=== PATIENT | female | born 1975 | race African-American/Black ===

== ENCOUNTER 2018-06-05 13:45 | Inpatient (IN) | payer MEDICAID ==
[~2018-06-05] VITALS: Ht 180.3 cm; Wt 93.0 kg
[2018-06-05] MEDS ORDERED: SODIUM CHLORIDE 0.9% 1,000 ML IV ONE (17:25)
[2018-06-05 18:25] LABS: BASOPHILS % 0.3 % (0.0-2.0); EOSINOPHILS % 0.6 % (0.0-5.0); HEMATOCRIT. 42.8 % (36.0-48.0); HEMOGLOBIN. 14.2 g/dL (12.0-16.0); LYMPHOCYTES % 8.1 % (20.0-50.0); MEAN CORPUSCULAR HEMOGLOBIN 30.3 pg (28.0-32.0); MEAN CORPUSCULAR VOLUME 91.5 fL (81.0-99.0); MEAN PLATELET VOLUME 9.9 fl (7.4-10.4); MONOCYTES % 5.5 % (2.0-8.0); NEUTROPHILS % 85.5 % (40.0-76.0); PLATELET 331 x1000/uL (130-400); RED BLOOD CELL COUNT 4.67 mill/uL (4.2-5.4); RED CELL DISTRIBUTION WIDTH 13.9 % (11.6-14.6)
[2018-06-05 18:26] LABS: CHLORIDE 103 mEq/L (98-107)
[2018-06-05 18:30] LABS: INR 1.1; PROTHROMBIN TIME 11.4 sec (9.1-11.1)
[2018-06-05 18:44] LABS: CLARITY URINE CLOUDY (CLEAR); COLOR URINE YELLOW (YELLOW); KETONES URINE TRACE (NEGATIVE); LEUKOCYTE ESTERASE URINE NEGATIVE (NEGATIVE); NITRITE URINE NEGATIVE (NEGATIVE); OCCULT BLOOD URINE NEGATIVE (NEGATIVE); PROTEIN URINE NEGATIVE (NEGATIVE); SPECIFIC GRAVITY URINE 1.041 (1.005-1.030); UROBILINOGEN URINE 0.2 E.U./dL (0.2-1.0)
[2018-06-05 19:21] LABS: HCG SCREEN NEGATIVE
[2018-06-05] MEDS ORDERED: ACETAMINOPHEN 325MG TABLET PO PRN (22:00)
[2018-06-05] MEDS ORDERED: CLONIDINE 0.1MG TABLET PO PRN (22:00)
[2018-06-05] MEDS ORDERED: POTASSIUM CHLORIDE 20MEQ TABLET SR PO PRN (22:00)
[2018-06-05 23:30] VITALS: BP 113/62
[2018-06-06] VITALS (10 sets, daily range): BP systolic 107–134; BP diastolic 56–82
[2018-06-06] MEDS: LORAZEPAM 0.5MG TABLET PO PRN (00:05)
[2018-06-06] MEDS: DEXT 5%/0.45% NACL 1000ML 1,000 ML IV SCH ×2 (00:16→11:12)
[2018-06-06] MEDS ORDERED: LEVO100T MT (04:38)
[2018-06-06] MEDS: LEVOTHYROXINE SODIUM 100MCG TABLET PO SCH (07:20)
[2018-06-06 07:35] LABS: CHLORIDE 107 mEq/L (98-107)
[2018-06-06 07:46] LABS: BASOPHILS % 0.2 % (0.0-2.0); EOSINOPHILS % 2.3 % (0.0-5.0); HEMATOCRIT. 36.1 % (36.0-48.0); HEMOGLOBIN. 12.1 g/dL (12.0-16.0); LYMPHOCYTES % 25.5 % (20.0-50.0); MEAN CORPUSCULAR HEMOGLOBIN 30.3 pg (28.0-32.0); MEAN CORPUSCULAR VOLUME 90.8 fL (81.0-99.0); MEAN PLATELET VOLUME 9.2 fl (7.4-10.4); MONOCYTES % 6.4 % (2.0-8.0); NEUTROPHILS % 65.6 % (40.0-76.0); PLATELET 277 x1000/uL (130-400); RED BLOOD CELL COUNT 3.98 mill/uL (4.2-5.4); RED CELL DISTRIBUTION WIDTH 13.5 % (11.6-14.6)
[2018-06-06 11:12] LABS: INR 1.2; PARTIAL THROMBOPLASTIN TIME 32.7 sec (23.4-31.0); PROTHROMBIN TIME 11.9 sec (9.1-11.1)
[2018-06-06] MEDS ORDERED: KETOROLAC 15MG/ML VIAL IV PRN (12:15)
[2018-06-06] MEDS ORDERED: FENTANYL CITRATE/PF 50MCG/ML 2ML VIAL ONE (16:30)
[2018-06-06] MEDS ORDERED: MIDAZOLAM HCL 2 MG/2 ML VIAL ONE ×2 (16:30→16:58)
[2018-06-06] MEDS ORDERED: PROPOFOL 200MG/20ML VIAL IV ONE (16:31)
[2018-06-06] MEDS ORDERED: DIPHENHYDRAMINE 50MG/ML VIAL ONE (16:38)
[2018-06-07] VITALS: BP 100/57
[2018-06-07] MEDS: DEXT 5%/0.45% NACL 1000ML 1,000 ML IV SCH ×2 (00:26→13:52)
[2018-06-07 04:00] VITALS: BP 107/65
[2018-06-07] MEDS: LEVOTHYROXINE SODIUM 100MCG TABLET PO SCH (06:47)
[2018-06-07] MEDS: KETOROLAC 10MG TABLET PO PRN ×2 (06:54→14:46)
[2018-06-07 08:00] VITALS: BP 105/63
[2018-06-07] MEDS ORDERED: PANTOPRAZOLE SODIUM 40 MG/VIAL IV SCH (09:00)
[2018-06-07 12:00] VITALS: BP 100/60
[2018-06-07 16:00] VITALS: BP 110/76
[2018-06-07] MEDS ORDERED: POLYETHYLENE GLYCOL 3350 (17GM) 1 DOSE PACK PO PRN (16:30)
[2018-06-07] MEDS ORDERED: DOCUSATE SODIUM 100MG CAPSULE PO PRN (16:30)
[2018-06-07] MEDS: NIFEDIPINE 10MG CAPSULE PO SCH (17:34)
[2018-06-07] MEDS: LORAZEPAM 0.5MG TABLET PO PRN ×2 (17:42→22:52)
[2018-06-07 20:00] VITALS: BP 105/60
[2018-06-08] VITALS: BP 105/60
[2018-06-08 04:00] VITALS: BP 105/60
[2018-06-08] MEDS: LEVOTHYROXINE SODIUM 100MCG TABLET PO SCH (06:23)
[2018-06-08 08:06] VITALS: BP 112/64
[2018-06-08] MEDS: NIFEDIPINE 10MG CAPSULE PO SCH ×2 (08:08→12:15)
[2018-06-08 11:51] VITALS: BP 122/84
[2018-06-08 13:08] VITALS: BP 122/84
== END 2018-06-08 14:27 | disposition home or self-care (01) | DRG 243 ==
LOC: ER 17:03 → 6WST 18:48 → ENRESERV 21:43
PROVIDERS: ADMIT Specialist; ATTEND Emergency Medicine
PROC: 0D718ZZ Dilation of Upper Esophagus, Via Natural or Artificial Opening Endoscopic (ICD-10-PCS; principal; 2018-06-06 16:00)
DX: K22.2 Esophageal obstruction (principal); D72.829 Elevated white blood cell count, unspecified; E86.0 Dehydration; E89.0 Postprocedural hypothyroidism; F41.9 Anxiety disorder, unspecified; K22.4 Dyskinesia of esophagus; Z90.49 Acquired absence of other specified parts of digestive tract; Z92.21 Personal history of antineoplastic chemotherapy; Z85.850 Personal history of malignant neoplasm of thyroid; Z92.3 Personal history of irradiation
CPT/HCPCS: 36415; 71045; 80048; 81025; 83605; 84703; 93005; 96360; 99285; J1200; J1885; J2250; J2704; J3010; J7030

== ENCOUNTER 2018-07-21 11:33 | Inpatient (IN) | payer MEDICAID ==
[~2018-07-21] VITALS: Ht 180.3 cm; Wt 88.5 kg
[~2018-07-21 11:33] MED LIST: LEVO100T MT
[2018-07-21] MEDS ORDERED: SODIUM CHLORIDE 0.9% 1,000 ML IV ONE (12:16)
[2018-07-21] MEDS ORDERED: NIFEDIPINE XL 30MG TAB PO ONE (12:30)
[2018-07-21 12:47] LABS: BASOPHILS % 0.4 % (0.0-2.0); EOSINOPHILS % 1.8 % (0.0-5.0); HEMATOCRIT. 41.6 % (36.0-48.0); LYMPHOCYTES % 22.3 % (20.0-50.0); MEAN CORPUSCULAR HEMOGLOBIN 30.3 pg (28.0-32.0); MEAN CORPUSCULAR VOLUME 90.3 fL (81.0-99.0); MEAN PLATELET VOLUME 9.3 fl (7.4-10.4); MONOCYTES % 7.2 % (2.0-8.0); NEUTROPHILS % 68.3 % (40.0-76.0); PLATELET 274 x1000/uL (130-400); RED BLOOD CELL COUNT 4.61 mill/uL (4.2-5.4); RED CELL DISTRIBUTION WIDTH 13.7 % (11.6-14.6)
[2018-07-21 12:53] LABS: INR 1.1; PROTHROMBIN TIME 11.1 sec (9.1-11.1)
[2018-07-21 13:00] LABS: CHLORIDE 103 mEq/L (98-107)
[2018-07-21 16:00] VITALS: BP 126/72
[2018-07-21 16:34] VITALS: BP 126/72
[2018-07-21] MEDS ORDERED: nifedipine (16:45)
[2018-07-21] MEDS ORDERED: NITROGLYCERIN 0.4MG TABLET SL SL PRN (17:15)
[2018-07-21] MEDS ORDERED: TRAMADOL 50MG TABLET PO PRN (17:15)
[2018-07-21] MEDS ORDERED: ACETAMINOPHEN 325MG TABLET PO PRN (17:15)
[2018-07-21] MEDS ORDERED: IPRATROPIUM/ALBUTEROL 0.5-3(2.5)MG/3ML NEB INH PRN (17:15)
[2018-07-21] MEDS ORDERED: NA PHOS,M-B/NA PHOS,DI-BA ENEMA 118ML PR PRN (17:15)
[2018-07-21] MEDS ORDERED: MAGNESIUM/ALUMINUM HYDROXIDE/SIMETHICONE 30ML UDC PO PRN (17:15)
[2018-07-21] MEDS ORDERED: LORAZEPAM 2MG/ML CPJ IV PRN (17:15)
[2018-07-21] MEDS ORDERED: CLONIDINE 0.1MG TABLET PO PRN (17:15)
[2018-07-21] MEDS: SODIUM CHLORIDE 0.9% 1,000 ML IV SCH (17:44)
[2018-07-21] MEDS: ENOXAPARIN 40MG/0.4ML SYR SUBCUT SCH (17:44)
[2018-07-21] MEDS: KETOROLAC 30MG/ML VIAL IV PRN (17:49)
[2018-07-21 20:00] VITALS: BP 117/79
[2018-07-21] MEDS: FAMOTIDINE 20MG TABLET PO SCH (20:03)
[2018-07-21] MEDS: ZOLPIDEM TARTRATE 5MG TABLET PO PRN (22:00)
[2018-07-22] VITALS: BP 112/76
[2018-07-22 04:00] VITALS: BP 126/74
[2018-07-22] MEDS ORDERED: LEVOTHYROXINE SODIUM 100MCG TABLET PO SCH (07:20)
[2018-07-22 08:00] VITALS: BP 117/61
[2018-07-22] MEDS ORDERED: DIATR MEGLU/DIATRIZOATE SOLN 120ML ONE (08:09)
[2018-07-22] MEDS ORDERED: BARIUM SULFATE 176 GM SUSP.RECON ONE (08:15)
[2018-07-22] MEDS: FAMOTIDINE 20MG TABLET PO SCH ×2 (08:22→21:45)
[2018-07-22] MEDS ORDERED: EZ-HD SUSPENSION(BARIUM SULFATE 340GM) PO ONE (09:06)
[2018-07-22] MEDS: KETOROLAC 30MG/ML VIAL IV PRN (10:59)
[2018-07-22 16:00] VITALS: BP 121/81
[2018-07-22] MEDS: ENOXAPARIN 40MG/0.4ML SYR SUBCUT SCH (17:14)
[2018-07-22 20:00] VITALS: BP 108/72
[2018-07-22] MEDS: ZOLPIDEM TARTRATE 5MG TABLET PO PRN (23:09)
[2018-07-23] VITALS: BP 130/82
[2018-07-23 04:00] VITALS: BP 116/65
[2018-07-23] MEDS: LEVOTHYROXINE SODIUM 125MCG TABLET PO SCH (06:40)
[2018-07-23 08:00] VITALS: BP 117/82
[2018-07-23] MEDS: FAMOTIDINE 20MG TABLET PO SCH ×2 (08:36→20:05)
[2018-07-23] MEDS: DOCUSATE SODIUM 100MG CAPSULE PO PRN (08:42)
[2018-07-23] MEDS: SODIUM CHLORIDE 0.9% 1,000 ML IV SCH (10:42)
[2018-07-23] MEDS: KETOROLAC 30MG/ML VIAL IV PRN ×2 (10:48→20:05)
[2018-07-23 12:00] VITALS: BP 110/65
[2018-07-23] MEDS: ONDANSETRON HCL 4MG/2ML INJ IV PRN ×2 (14:09→19:00)
[2018-07-23 16:00] VITALS: BP 115/60
[2018-07-23] MEDS: ENOXAPARIN 40MG/0.4ML SYR SUBCUT SCH (18:24)
[2018-07-23 20:00] VITALS: BP 119/79
[2018-07-23] MEDS: PANTOPRAZOLE SODIUM 40 MG/VIAL IV SCH (20:05)
[2018-07-23] MEDS: ZOLPIDEM TARTRATE 5MG TABLET PO PRN (22:39)
[2018-07-24] VITALS: BP 118/71
[2018-07-24 04:00] VITALS: BP 116/74
[2018-07-24] MEDS: SODIUM CHLORIDE 0.9% 1,000 ML IV SCH ×3 (06:33→23:16)
[2018-07-24] MEDS: LEVOTHYROXINE SODIUM 125MCG TABLET PO SCH (06:35)
[2018-07-24 08:00] VITALS: BP 131/80
[2018-07-24] MEDS: PANTOPRAZOLE SODIUM 40 MG/VIAL IV SCH ×2 (08:24→23:03)
[2018-07-24] MEDS: FAMOTIDINE 20MG TABLET PO SCH (08:28)
[2018-07-24 09:32] LABS: BASOPHILS % 0.6 % (0.0-2.0); EOSINOPHILS % 2.1 % (0.0-5.0); HEMATOCRIT. 35.4 % (36.0-48.0); HEMOGLOBIN. 11.8 g/dL (12.0-16.0); LYMPHOCYTES % 25.2 % (20.0-50.0); MEAN CORPUSCULAR HEMOGLOBIN 30.4 pg (28.0-32.0); MEAN CORPUSCULAR VOLUME 90.9 fL (81.0-99.0); MEAN PLATELET VOLUME 9.2 fl (7.4-10.4); MONOCYTES % 6.7 % (2.0-8.0); NEUTROPHILS % 65.4 % (40.0-76.0); PLATELET 276 x1000/uL (130-400); RED CELL DISTRIBUTION WIDTH 13.8 % (11.6-14.6)
[2018-07-24 09:43] LABS: CHLORIDE 107 mEq/L (98-107)
[2018-07-24 09:52] LABS: PHOSPHORUS 2.5 mg/dL (2.5-4.9)
[2018-07-24 10:27] LABS: INR 1.2; PARTIAL THROMBOPLASTIN TIME 31.4 sec (23.4-31.0); PROTHROMBIN TIME 11.8 sec (9.1-11.1)
[2018-07-24] MEDS ORDERED: MIDAZOLAM HCL 5 MG/5 ML VIAL ONE (11:42)
[2018-07-24] MEDS ORDERED: FENTANYL CITRATE/PF 50MCG/ML 2ML VIAL ONE (11:42)
[2018-07-24] MEDS ORDERED: MIDAZOLAM HCL 5 MG/5 ML VIAL IV PRN (11:47)
[2018-07-24] MEDS ORDERED: FENTANYL CITRATE/PF 50MCG/ML 2ML VIAL IV PRN (11:48)
[2018-07-24] MEDS ORDERED: STERILE WATER FOR INJECTION 10ML VIAL ONE (15:46)
[2018-07-24 16:00] VITALS: BP 156/69
[2018-07-24] MEDS: ENOXAPARIN 40MG/0.4ML SYR SUBCUT SCH (17:18)
[2018-07-24 20:08] VITALS: BP 102/58
[2018-07-24] MEDS: ONDANSETRON HCL 4MG/2ML INJ IV PRN (23:04)
[2018-07-24] MEDS: ZOLPIDEM TARTRATE 5MG TABLET PO PRN (23:04)
[2018-07-25] VITALS: BP 124/61
[2018-07-25 04:00] VITALS: BP 120/72
[2018-07-25] MEDS: LEVOTHYROXINE SODIUM 125MCG TABLET PO SCH (07:29)
[2018-07-25 07:52] VITALS: BP 122/82
[2018-07-25] MEDS: DOCUSATE SODIUM 100MG CAPSULE PO PRN (08:18)
[2018-07-25] MEDS: PANTOPRAZOLE SODIUM 40 MG/VIAL IV SCH (08:18)
[2018-07-25] MEDS: SODIUM CHLORIDE 0.9% 1,000 ML IV SCH (10:57)
[2018-07-25 12:00] VITALS: BP 108/70
[2018-07-25 12:09] VITALS: BP 108/70
== END 2018-07-25 14:20 | disposition home or self-care (01) | DRG 243 ==
LOC: ER 13:12 → 6EST 13:58 → EDBEDREQ 14:00 → EDBEDREQSVC 14:00 → ENRESERV 14:23 → 6EST 07-22 11:59
PROVIDERS: ADMIT Internal Medicine; ATTEND Internal Medicine
PROC: 0DB68ZX Excision of Stomach, Via Natural or Artificial Opening Endoscopic, Diagnostic (ICD-10-PCS; principal; 2018-07-24)
DX: K22.2 Esophageal obstruction (principal); E89.0 Postprocedural hypothyroidism; K44.9 Diaphragmatic hernia without obstruction or gangrene; K29.60 Other gastritis without bleeding; I10 Essential (primary) hypertension; Z85.850 Personal history of malignant neoplasm of thyroid; Z90.49 Acquired absence of other specified parts of digestive tract; Z79.899 Other long term (current) drug therapy
CPT/HCPCS: 36415; 71045; 74220; 80048; 83735; 84100; 84443; 88305; 88312; 88313; 93005; 93970; 96361; 96372; 96374; 99285; A4216; C9113; J1650; J1885; J2250; J2405; J3010; J7030; J7042; Q9963

== ENCOUNTER 2018-11-29 18:20 | Inpatient (IN) | payer MEDICAID ==
[~2018-11-29] VITALS: Ht 182.9 cm; Wt 86.2 kg
[~2018-11-29 18:20] MED LIST changes: +nifedipine
[2018-11-30] MEDS ORDERED: SODIUM CHLORIDE 0.9% 1,000 ML IV ONE (00:50)
[2018-11-30] MEDS ORDERED: ONDANSETRON HCL 4MG/2ML INJ IV STA (00:50)
[2018-11-30] MEDS ORDERED: MORPHINE SULFATE 4 MG/ML CPJ (NOT FOR IM USE) IV STA (00:50)
[2018-11-30 01:00] LABS: BASOPHILS % 0.5 % (0.0-2.0); EOSINOPHILS % 3.7 % (0.0-5.0); HEMATOCRIT. 37.2 % (36.0-48.0); HEMOGLOBIN. 12.5 g/dL (12.0-16.0); MEAN CORPUSCULAR VOLUME 89.4 fL (81.0-99.0); MEAN PLATELET VOLUME 9.9 fl (7.4-10.4); MONOCYTES % 7.1 % (2.0-8.0); NEUTROPHILS % 57.7 % (40.0-76.0); PLATELET 243 x1000/uL (130-400); RED BLOOD CELL COUNT 4.17 mill/uL (4.2-5.4); RED CELL DISTRIBUTION WIDTH 13.9 % (11.6-14.6)
[2018-11-30 01:02] LABS: CHLORIDE 108 mEq/L (98-107)
[2018-11-30] MEDS ORDERED: MORPHINE SULFATE 4 MG/ML CPJ (NOT FOR IM USE) IV ONE (04:30)
[2018-11-30 08:30] VITALS: BP 112/68
[2018-11-30 08:40] VITALS: BP 112/68
[2018-11-30] MEDS ORDERED: ACETAMINOPHEN 325MG TABLET PO PRN (10:00)
[2018-11-30] MEDS ORDERED: ONDANSETRON HCL 4MG/2ML INJ IV PRN (10:00)
[2018-11-30] MEDS ORDERED: MECLIZINE 25MG TABLET PO PRN (10:45)
[2018-11-30] MEDS ORDERED: HYDROCODONE/ACETAMINOPHEN 5/325MG TABLET PO PRN (10:45)
[2018-11-30] MEDS: LEVOTHYROXINE SODIUM 100MCG TABLET PO SCH (11:55)
[2018-11-30 12:30] VITALS: BP 118/72
[2018-11-30 15:24] LABS: CLARITY URINE CLEAR (CLEAR); COLOR URINE YELLOW (YELLOW); KETONES URINE 1+ (NEGATIVE); LEUKOCYTE ESTERASE URINE NEGATIVE (NEGATIVE); NITRITE URINE NEGATIVE (NEGATIVE); OCCULT BLOOD URINE 2+ (NEGATIVE); PH URINE 5.5 (4.5-8.0); PROTEIN URINE NEGATIVE (NEGATIVE); SPECIFIC GRAVITY URINE 1.023 (1.005-1.030)
[2018-11-30 15:35] LABS: *AMPHETAMINES SCREEN URINE NEGATIVE (NEGATIVE); *BARBITURATES SCREEN URINE NEGATIVE (NEGATIVE); *BENZODIAZEPINES SCREEN URINE NEGATIVE (NEGATIVE); *COCAINE SCREEN URINE NEGATIVE (NEGATIVE); METHADONE URINE SCREEN NEGATIVE (NEGATIVE)
[2018-11-30 15:36] LABS: CANNABINOID URINE SCREEN NEGATIVE (NEGATIVE); PHENCYCLIDINE URINE SCREEN NEGATIVE (NEGATIVE)
[2018-11-30 15:58] LABS: OPIATES URINE SCREEN PRESUMTIVE POSITIVE (NEGATIVE)
[2018-11-30 16:25] VITALS: BP 98/62
[2018-11-30 20:00] VITALS: BP 110/63
[2018-11-30] MEDS: IPRATROPIUM/ALBUTEROL 0.5-3(2.5)MG/3ML NEB HHN SCH (21:07)
[2018-12-01] VITALS: BP 108/61
[2018-12-01] MEDS: IPRATROPIUM/ALBUTEROL 0.5-3(2.5)MG/3ML NEB HHN SCH ×3 (02:47→16:05)
[2018-12-01 04:00] VITALS: BP 100/66
[2018-12-01 06:13] LABS: BASOPHILS % 0.6 % (0.0-2.0); EOSINOPHILS % 4.2 % (0.0-5.0); HEMATOCRIT. 32.6 % (36.0-48.0); LYMPHOCYTES % 34.3 % (20.0-50.0); MONOCYTES % 6.7 % (2.0-8.0); NEUTROPHILS % 54.2 % (40.0-76.0); PLATELET 223 x1000/uL (130-400); RED BLOOD CELL COUNT 3.67 mill/uL (4.2-5.4); RED CELL DISTRIBUTION WIDTH 13.5 % (11.6-14.6)
[2018-12-01] MEDS: LEVOTHYROXINE SODIUM 100MCG TABLET PO SCH (06:21)
[2018-12-01 06:49] LABS: CHLORIDE 108 mEq/L (98-107)
[2018-12-01 08:00] VITALS: BP 103/77
[2018-12-01 12:00] VITALS: BP 111/69
[2018-12-01 15:16] VITALS: BP 111/69
[2018-12-01 16:00] VITALS: BP 117/77
== END 2018-12-01 19:45 | disposition home or self-care (01) | DRG 48 ==
LOC: ER 19:50 → 6WST 11-30 05:52 → EDBEDREQ 11-30 05:56 → EDBEDREQTM 11-30 05:56 → ENRESERV 11-30 07:12
PROVIDERS: ADMIT Internal Medicine; ATTEND Internal Medicine
DX: G90.8 Other disorders of autonomic nervous system (principal); K22.2 Esophageal obstruction; E89.0 Postprocedural hypothyroidism; Z77.098 Contact with and (suspected) exposure to other hazardous, chiefly nonmedicinal, chemicals; Z85.850 Personal history of malignant neoplasm of thyroid; Z86.011 Personal history of benign neoplasm of the brain; Z90.49 Acquired absence of other specified parts of digestive tract
CPT/HCPCS: 36415; 71045; 80048; 80061; 80305; 82962; 83735; 84484; 85379; 93005; 93306; 96361; 96374; 96375; 99285; J2270; J2405; J7030; J7620

== ENCOUNTER 2019-04-02 10:55 | Emergency (ER) | payer MEDICAID ==
[~2019-04-02] VITALS: Ht 177.8 cm; Wt 100.0 kg
[2019-04-02 13:35] VITALS: BP 114/75
== END 2019-04-02 15:36 | disposition left against medical advice (07) ==
LOC: ER 10:55
DX: Z53.21 Procedure and treatment not carried out due to patient leaving prior to being seen by health care provider (principal)

== ENCOUNTER 2019-04-16 18:48 | Emergency (ER) | payer MEDICAID ==
[~2019-04-16] VITALS: Ht 180.3 cm; Wt 87.0 kg
[2019-04-17] MEDS ORDERED: ALBUTEROL (0.083%) 2.5MG/3ML NEB HHN STA (00:43)
[2019-04-17] MEDS ORDERED: IPRATROPIUM BROMIDE (0.02%) 0.5MG/2.5ML NEB HHN STA (00:43)
[2019-04-17 01:04] LABS: BASOPHILS % 0.5 % (0.0-2.0); EOSINOPHILS % 3.4 % (0.0-5.0); HEMATOCRIT. 38.6 % (36.0-48.0); HEMOGLOBIN. 12.9 g/dL (12.0-16.0); LYMPHOCYTES % 36.6 % (20.0-50.0); MEAN CORPUSCULAR HEMOGLOBIN 30.1 pg (28.0-32.0); MEAN CORPUSCULAR VOLUME 89.9 fL (81.0-99.0); MEAN PLATELET VOLUME 9.3 fl (7.4-10.4); MONOCYTES % 6.6 % (2.0-8.0); NEUTROPHILS % 52.9 % (40.0-76.0); PLATELET 241 x1000/uL (130-400); RED BLOOD CELL COUNT 4.29 mill/uL (4.2-5.4); RED CELL DISTRIBUTION WIDTH 13.6 % (11.6-14.6)
[2019-04-17 01:09] LABS: CHLORIDE 105 mEq/L (98-107)
[2019-04-17] MEDS ORDERED: IBUPROFEN 400MG TABLET PO ONE (01:15)
[2019-04-17 02:23] VITALS: BP 125/81
== END 2019-04-17 02:25 | disposition home or self-care (01) ==
LOC: ER 18:48
DX: J20.9 Acute bronchitis, unspecified (principal); I10 Essential (primary) hypertension; Z90.49 Acquired absence of other specified parts of digestive tract; Z79.899 Other long term (current) drug therapy
CPT/HCPCS: 36415; 71045; 80053; 83880; 84484; 85025; 93005; 94640; 99284; J7611; Z7610

== ENCOUNTER 2019-06-17 14:30 | Inpatient (IN) | payer MEDICAID ==
[~2019-06-17] VITALS: Ht 180.3 cm; Wt 90.7 kg
[2019-06-17 15:42] LABS: BASOPHILS % 0.6 % (0.0-2.0); EOSINOPHILS % 1.6 % (0.0-5.0); HEMATOCRIT. 35.4 % (36.0-48.0); HEMOGLOBIN. 11.9 g/dL (12.0-16.0); LYMPHOCYTES % 23.1 % (20.0-50.0); MEAN CORPUSCULAR HEMOGLOBIN 30.3 pg (28.0-32.0); MEAN CORPUSCULAR VOLUME 90.1 fL (81.0-99.0); MEAN PLATELET VOLUME 9.9 fl (7.4-10.4); MONOCYTES % 7.7 % (2.0-8.0); PLATELET 261 x1000/uL (130-400); RED BLOOD CELL COUNT 3.93 mill/uL (4.2-5.4)
[2019-06-17 15:49] LABS: INR 1.2
[2019-06-17 15:50] LABS: CHLORIDE 107 mEq/L (98-107)
[2019-06-17] MEDS ORDERED: SODIUM CHLORIDE 0.9% IRRIG SOLUTION 1000ML IR NR (16:15)
[2019-06-17] MEDS ORDERED: LORAZEPAM 1MG TABLET PO ONE (16:30)
[2019-06-17] MEDS ORDERED: SODIUM CHLORIDE 0.9% 1,000 ML IV ONE (17:00)
[2019-06-17] MEDS ORDERED: IOHEXOL-300 100 ML BOTTLE ONE (17:40)
[2019-06-17 18:43] LABS: CLARITY URINE CLEAR (CLEAR); COLOR URINE YELLOW (YELLOW); KETONES URINE 2+ (NEGATIVE); LEUKOCYTE ESTERASE URINE NEGATIVE (NEGATIVE); NITRITE URINE NEGATIVE (NEGATIVE); OCCULT BLOOD URINE TRACE (NEGATIVE); PH URINE 5.5 (4.5-8.0); PROTEIN URINE NEGATIVE (NEGATIVE); SPECIFIC GRAVITY URINE 1.039 (1.005-1.030); UROBILINOGEN URINE 0.2 E.U./dL (0.2-1.0)
[2019-06-17 19:12] LABS: UCG SCREEN NEGATIVE
[2019-06-17] MEDS ORDERED: ACETAMINOPHEN 325MG TABLET PO PRN (19:15)
[2019-06-17 21:10] VITALS: BP 123/71
[2019-06-17] MEDS: ONDANSETRON HCL 4MG/2ML INJ IV PRN (23:20)
[2019-06-17] MEDS: ZOLPIDEM TARTRATE 5MG TABLET PO PRN (23:21)
[2019-06-17] MEDS: DEXT 5%/0.45% NACL 1000ML 1,000 ML IV SCH (23:21)
[2019-06-18] VITALS (7 sets, daily range): BP systolic 96–128; BP diastolic 40–68
[2019-06-18 06:15] LABS: BASOPHILS % 0.4 % (0.0-2.0); EOSINOPHILS % 2.7 % (0.0-5.0); HEMOGLOBIN. 11.2 g/dL (12.0-16.0); LYMPHOCYTES % 27.3 % (20.0-50.0); MEAN CORPUSCULAR HEMOGLOBIN 30.5 pg (28.0-32.0); MEAN CORPUSCULAR VOLUME 89.8 fL (81.0-99.0); MONOCYTES % 8.1 % (2.0-8.0); NEUTROPHILS % 61.5 % (40.0-76.0); PLATELET 240 x1000/uL (130-400); RED BLOOD CELL COUNT 3.67 mill/uL (4.2-5.4); RED CELL DISTRIBUTION WIDTH 14.1 % (11.6-14.6)
[2019-06-18] MEDS: DEXT 5%/0.45% NACL 1000ML 1,000 ML IV SCH ×2 (06:18→15:48)
[2019-06-18 06:48] LABS: CHLORIDE 107 mEq/L (98-107)
[2019-06-18] MEDS ORDERED: HYDROCODONE/ACETAMINOPHEN 5/325MG TABLET PO PRN (09:45)
[2019-06-18] MEDS: MORPHINE SULFATE 2 MG/ML CPJ (NOT FOR IM USE) IV PRN ×2 (10:25→16:47)
[2019-06-18] MEDS ORDERED: EZ-HD SUSPENSION(BARIUM SULFATE 340GM) PO ONE (11:03)
[2019-06-18] MEDS ORDERED: BARIUM SULFATE 176 GM SUSP.RECON ONE (11:03)
[2019-06-18] MEDS ORDERED: SIMETHICONE/SOD BICARB/CIT AC 1 EACH GRAN.EF.PK ONE (11:06)
[2019-06-18] MEDS ORDERED: INFLUENZA VIRUS VACCINE(AFLURIA) 0.5ML SYR IM ONE (12:00)
[2019-06-18] MEDS ORDERED: PNEUMOCOCCAL 23-VAL P-SAC VAC 0.5 ML IM ONE (12:00)
[2019-06-18] MEDS: LEVOTHYROXINE SODIUM 100MCG TABLET PO SCH (16:35)
[2019-06-18] MEDS: ZOLPIDEM TARTRATE 5MG TABLET PO PRN (22:07)
[2019-06-19] VITALS (8 sets, daily range): BP systolic 97–114; BP diastolic 48–72
[2019-06-19] MEDS: DEXT 5%/0.45% NACL 1000ML 1,000 ML IV SCH ×2 (05:31→22:06)
[2019-06-19] MEDS: LEVOTHYROXINE SODIUM 100MCG TABLET PO SCH (05:31)
[2019-06-19 06:25] LABS: BASOPHILS % 0.5 % (0.0-2.0); EOSINOPHILS % 2.4 % (0.0-5.0); HEMATOCRIT. 34.2 % (36.0-48.0); HEMOGLOBIN. 11.7 g/dL (12.0-16.0); LYMPHOCYTES % 29.1 % (20.0-50.0); MEAN CORPUSCULAR HEMOGLOBIN 30.5 pg (28.0-32.0); MEAN CORPUSCULAR VOLUME 89.6 fL (81.0-99.0); MEAN PLATELET VOLUME 10.2 fl (7.4-10.4); MONOCYTES % 7.8 % (2.0-8.0); NEUTROPHILS % 60.2 % (40.0-76.0); PLATELET 245 x1000/uL (130-400); RED BLOOD CELL COUNT 3.82 mill/uL (4.2-5.4)
[2019-06-19 07:31] LABS: CHLORIDE 106 mEq/L (98-107)
[2019-06-19] MEDS: MORPHINE SULFATE 2 MG/ML CPJ (NOT FOR IM USE) IV PRN (18:43)
[2019-06-19] MEDS: ONDANSETRON HCL 4MG/2ML INJ IV PRN (20:02)
[2019-06-19] MEDS: ZOLPIDEM TARTRATE 5MG TABLET PO PRN (22:06)
[2019-06-20] VITALS (10 sets, daily range): BP systolic 84–111; BP diastolic 38–72
[2019-06-20] MEDS: DEXT 5%/0.45% NACL 1000ML 1,000 ML IV SCH ×2 (06:15→13:58)
[2019-06-20] MEDS: LEVOTHYROXINE SODIUM 100MCG TABLET PO SCH (06:15)
[2019-06-20] MEDS ORDERED: SODIUM CHLORIDE 0.9% 250 ML IV ONE (14:45)
[2019-06-20] MEDS ORDERED: LEVO150T8 MT (21:11)
[2019-06-20] MEDS: ZOLPIDEM TARTRATE 5MG TABLET PO PRN (21:50)
[2019-06-20] MEDS: MECLIZINE 12.5MG TABLET PO SCH (21:51)
[2019-06-21] VITALS: BP 97/53
[2019-06-21 04:00] VITALS: BP 111/68
[2019-06-21] MEDS: MECLIZINE 12.5MG TABLET PO SCH (06:00)
[2019-06-21] MEDS: LEVOTHYROXINE SODIUM 100MCG TABLET PO SCH (06:24)
[2019-06-21] MEDS: DEXT 5%/0.45% NACL 1000ML 1,000 ML IV SCH (06:24)
[2019-06-21 06:57] LABS: BASOPHILS % 0.6 % (0.0-2.0); EOSINOPHILS % 2.3 % (0.0-5.0); HEMOGLOBIN. 11.5 g/dL (12.0-16.0); LYMPHOCYTES % 29.1 % (20.0-50.0); MEAN CORPUSCULAR HEMOGLOBIN 30.6 pg (28.0-32.0); MEAN CORPUSCULAR VOLUME 90.6 fL (81.0-99.0); MEAN PLATELET VOLUME 10.2 fl (7.4-10.4); MONOCYTES % 7.9 % (2.0-8.0); NEUTROPHILS % 60.1 % (40.0-76.0); PLATELET 222 x1000/uL (130-400); RED BLOOD CELL COUNT 3.75 mill/uL (4.2-5.4); RED CELL DISTRIBUTION WIDTH 14.1 % (11.6-14.6)
[2019-06-21 07:08] LABS: CHLORIDE 108 mEq/L (98-107)
[2019-06-21 08:00] VITALS: BP 106/56
[2019-06-21] MEDS ORDERED: LEVO150T8 MT (09:51)
[2019-06-21 10:35] VITALS: BP 106/56
== END 2019-06-21 11:00 | disposition home or self-care (01) | DRG 243 ==
LOC: ER 14:30 → 6WST 19:48 → ENRESERV 20:24
PROVIDERS: ADMIT Internal Medicine; ATTEND Internal Medicine
DX: K22.2 Esophageal obstruction (principal); J38.00 Paralysis of vocal cords and larynx, unspecified; E44.1 Mild protein-calorie malnutrition; E89.0 Postprocedural hypothyroidism; F41.9 Anxiety disorder, unspecified; I95.1 Orthostatic hypotension; Z85.850 Personal history of malignant neoplasm of thyroid; Z79.899 Other long term (current) drug therapy; Z68.27 Body mass index [BMI] 27.0-27.9, adult
CPT/HCPCS: 36415; 70491; 74220; 80048; 81003; 81025; 90686; 90732; 92610; 96360; 99285; J2270; J2405; J7030; J7040; J7517; Q9967

== ENCOUNTER 2019-09-22 22:38 | Emergency (ER) | payer MEDICAID ==
[~2019-09-22] VITALS: Ht 180.3 cm; Wt 90.0 kg
[~2019-09-22 22:38] MED LIST changes: -LEVO100T MT; +LEVO150T8 MT
[2019-09-22 23:48] LABS: BASOPHILS % 0.7 % (0.0-2.0); EOSINOPHILS % 3.8 % (0.0-5.0); HEMATOCRIT. 36.4 % (36.0-48.0); HEMOGLOBIN. 12.6 g/dL (12.0-16.0); LYMPHOCYTES % 28.6 % (20.0-50.0); MEAN CORPUSCULAR VOLUME 89.7 fL (81.0-99.0); MEAN PLATELET VOLUME 9.1 fl (7.4-10.4); MONOCYTES % 7.3 % (2.0-8.0); NEUTROPHILS % 59.6 % (40.0-76.0); PLATELET 254 x1000/uL (130-400); RED BLOOD CELL COUNT 4.05 mill/uL (4.2-5.4); RED CELL DISTRIBUTION WIDTH 13.3 % (11.6-14.6)
[2019-09-22 23:59] LABS: CHLORIDE 108 mEq/L (98-107)
[2019-09-23 00:36] VITALS: BP 125/80
== END 2019-09-23 00:36 | disposition home or self-care (01) ==
LOC: ER 22:38
DX: R55 Syncope and collapse (principal); F41.0 Panic disorder [episodic paroxysmal anxiety]; E03.9 Hypothyroidism, unspecified; R42 Dizziness and giddiness; R00.2 Palpitations; R06.02 Shortness of breath; M79.10 Myalgia, unspecified site; Z90.49 Acquired absence of other specified parts of digestive tract; Z85.850 Personal history of malignant neoplasm of thyroid; Z98.890 Other specified postprocedural states
CPT/HCPCS: 36415; 80053; 84443; 84484; 85025; 93005; 99284